=== PATIENT | female | born 1940 | race Caucasian/White ===

== ENCOUNTER 2018-03-01 11:39 | Inpatient (IN) | payer OTHER | END 2018-03-03 16:08 | disposition home health service (06) | LOC: ER 11:39 → TELE 16:25 → TELE-CENTR 22:11 | PROC: 027034Z Dilation of Coronary Artery, One Artery with Drug-eluting Intraluminal Device, Percutaneous Approach (ICD-10-PCS; principal; ~2018-03-01) | PROC: B2111ZZ Fluoroscopy of Multiple Coronary Arteries using Low Osmolar Contrast (ICD-10-PCS; ~2018-03-01) | DX: I21.4 Non-ST elevation (NSTEMI) myocardial infarction (principal); E44.1 Mild protein-calorie malnutrition; I25.119 Atherosclerotic heart disease of native coronary artery with unspecified angina pectoris; Z95.5 Presence of coronary angioplasty implant and graft; E11.9 Type 2 diabetes mellitus without complications; I10 Essential (primary) hypertension; E78.5 Hyperlipidemia, unspecified ==

== ENCOUNTER 2023-10-21 21:16 | Inpatient (IN) | payer OTHER ==
[~2023-10-21] VITALS: Ht 154.9 cm; Wt 98.5 kg
[~2023-10-21 21:16] MED LIST: AMOX500C2 PO; ASPI1TAB20 PO; ATOR10TA PO; CLOP75TA28 PO; ESCI5TAB PO; GABA-1250 PO; MET25T PO
[2023-10-21] MEDS ORDERED: DEXTROSE (50%) 50ML SYRG IV PRN (22:30)
[2023-10-21 22:57] VITALS: BP 150/79; PULSE 77; RESP 19; TEMP 97.7; O2SAT 99
[2023-10-21 23:47] VITALS: BP 150/79; PULSE 77; RESP 19; TEMP 97.7; O2SAT 99
[2023-10-21 23:57] VITALS: BP 150/79; PULSE 77; RESP 19; TEMP 97.7; O2SAT 99
[2023-10-22] VITALS (8 sets, daily range): BP systolic 105–142; BP diastolic 54–66; PULSE 64–87; RESP 17–18; TEMP 97.7–98.3; O2SAT 90–95
[2023-10-22] MEDS: cefTRIAXone 1GM/50ML D5W 50 ML IV SCH (00:45)
[2023-10-22] MEDS: SODIUM CHLORIDE 0.9% 1,000 ML IV SCH (00:45)
[2023-10-22] MEDS ORDERED: hydrALAZINE HCL 10 MG TAB PO PRN (01:00)
[2023-10-22] MEDS ORDERED: METF-370 PO (01:57)
[2023-10-22] MEDS ORDERED: GABA-1308 PO (02:36)
[2023-10-22] MEDS: ONDANSETRON HCL 4 MG/2 ML VIAL IV PRN (05:49)
[2023-10-22 06:28] LABS: Basophils # (auto) 0 10 ^3/uL (0-0.2); Basophils % (auto) 0.5 % (0.0-2.0); Eosinophils # (auto) 0.1 10 ^3/uL (0-0.8); Eosinophils % (auto) 1.2 % (0.0-7.0); Hematocrit 38.5 % (36.0-46.0); Hemoglobin 12.9 g/dL (12.2-16.2); Lymphocytes % (auto) 23.4 % (10.0-50.0); Mean Corpuscular Hgb Conc. 33.5 g/dL (32.0-36.0); Mean Corpuscular Volume 86.7 fL (80.0-100.0); Monocytes # (auto) 0.7 10 ^3/uL (0-1.3); Monocytes % (auto) 7.8 % (0.0-12.0); Neutrophils # (auto) 5.6 10 ^3/uL (1.6-8.6); Neutrophils % (auto) 67.1 % (37.0-80.0); Nucleated Red Blood Cells % 0.1 %; Platelet Count (auto) 167 10^3/uL (140-450); Red Blood Cells 4.44 10^6/uL (4.0-5.20); Red Cell Distribution Width 15.6 % (11.8-14.3); White Blood Cell 8.4 10^3/uL (4.4-10.8)
[2023-10-22 06:38] LABS: Anion Gap 5 (5-15); Carbon Dioxide 26 mmol/L (20-30); Chloride 106 mmol/L (98-107); Potassium 3.9 mmol/L (3.5-5.1); Sodium 137 mmol/L (136-145)
[2023-10-22 06:44] LABS: BUN/Creatinine Ratio 10.1 (10.0-20.0); Blood Urea Nitrogen 11 mg/dL (9-23); Glucose 132 mg/dL (74-106)
[2023-10-22] MEDS: ACCU-CHEK COMFORT CURVE STRIP VI SCH (06:44)
[2023-10-22] MEDS: InsuLIN REG 1unit/0.01ml Soln (100units/ml) SC SCH (06:52)
[2023-10-22] MEDS: GABAPENTIN 400 MG CAP PO SCH (09:07)
[2023-10-22] MEDS: FAMOTIDINE 20 MG TAB PO SCH (09:07)
[2023-10-22] MEDS: CLOPIDOGREL BISULFATE 75 MG TAB PO SCH (09:07)
[2023-10-22] MEDS: CITALOPRAM HYDROBR 20 MG TAB PO SCH (09:07)
[2023-10-22] MEDS: METOPROLOL TARTRATE 25 MG TAB PO SCH (09:08)
[2023-10-22] MEDS: ASPirin-EC 81 mg tab PO SCH (09:08)
[2023-10-22] MEDS: ENOXAPARIN SOD 40 MG/0.4 ML SYRINGE SC SCH (09:08)
[2023-10-22] MEDS: ACETAMINOPHEN 325 MG TAB PO ONE (20:29)
[2023-10-22] MEDS: ATORVASTATIN 20 MG TAB PO SCH (21:45)
[2023-10-23 05:00] VITALS: BP 133/71; PULSE 79; RESP 16; TEMP 98; O2SAT 93
[2023-10-23 08:00] VITALS: PULSE 71; RESP 18; O2SAT 93
[2023-10-23] MEDS: MORPHINE SULFATE INJ 2 MG/ml SYRG IV PRN (08:22)
[2023-10-23 09:58] VITALS: BP 124/60; PULSE 67; RESP 20; TEMP 97.8; O2SAT 94
[2023-10-23 12:35] VITALS: BP 121/64; PULSE 60; RESP 20; TEMP 98.2; O2SAT 93
[2023-10-23] MEDS ORDERED: CEPH500C PO ×2 (14:12→14:43)
[2023-10-23 14:50] VITALS: BP 124/60; PULSE 67; RESP 18; TEMP 36.6; O2SAT 84
== END 2023-10-23 16:15 | disposition home health service (06) | DRG 690 ==
LOC: TELE-WESTW 22:22 → OBSVTOIN 10-22 10:52
PROVIDERS: ADMIT Internal Medicine; ATTEND Internal Medicine
DX: N39.0 Urinary tract infection, site not specified (principal); E87.20 Acidosis, unspecified; E11.9 Type 2 diabetes mellitus without complications; I10 Essential (primary) hypertension; Z86.73 Personal history of transient ischemic attack (TIA), and cerebral infarction without residual deficits; Z79.2 Long term (current) use of antibiotics; Z79.899 Other long term (current) drug therapy; Z79.82 Long term (current) use of aspirin; Z79.84 Long term (current) use of oral hypoglycemic drugs; Z82.49 Family history of ischemic heart disease and other diseases of the circulatory system
CPT/HCPCS: 36415; 80048; 82962; 83605; 85025; 97110; 97530; G0378; J1815; J2405